=== PATIENT | male | born 1960 | race Caucasian/White ===

== ENCOUNTER 2017-08-25 14:09 | Day surgery (SDC) | payer BC, OTHER ==
[2017-08-25] MEDS ORDERED: MIDAZOLAM 1 MG/ML 2 ML INJ ×2 (15:33)
[2017-08-25] MEDS ORDERED: FENTAnyl 50 MCG/ML VIAL (15:33)
== END 2017-08-25 17:23 | disposition home or self-care (01) ==
LOC: GIL 14:09
DX: Z12.11 Encounter for screening for malignant neoplasm of colon (principal); D12.5 Benign neoplasm of sigmoid colon; K64.8 Other hemorrhoids
CPT/HCPCS: 45380; 88305